=== PATIENT | female | born 1990 | race Caucasian/White ===

== ENCOUNTER 2018-03-27 15:30 | Emergency (ER) | payer OTHER ==
[2018-03-27] MEDS: HYDROCODONE/APAP (5/325) TAB PO (17:21)
== END 2018-03-27 17:57 | disposition home or self-care (01) ==
LOC: FTE 15:30
DX: S99.912A Unspecified injury of left ankle, initial encounter (principal); W10.8XXA Fall (on) (from) other stairs and steps, initial encounter; Y92.009 Unspecified place in unspecified non-institutional (private) residence as the place of occurrence of the external cause
CPT/HCPCS: 73590; 73610; 73630-LT; 99283-25

== ENCOUNTER 2018-10-10 10:17 | Day surgery (SDC) | payer OTHER ==
[2018-10-10] MEDS ORDERED: DEXAMETHASONE 4 MG/ML 1 ML INJ (11:26)
[2018-10-10] MEDS ORDERED: LIDOCAINE 2% (SDV) 5 ML INJ (12:40)
[2018-10-10] MEDS ORDERED: MIDAZOLAM 1 MG/ML 2 ML INJ (12:40)
[2018-10-10] MEDS ORDERED: FENTAnyl 50 MCG/ML VIAL (12:40)
[2018-10-10] MEDS ORDERED: PROPOFOL 20 ML ×3 (12:40→13:26)
[2018-10-10] MEDS: BUPIVACAINE 0.5% (SDV) 30 ML INJ (12:48)
[2018-10-10] MEDS: LIDOCAINE 2% (MDV) 20 ML INJ (12:48)
[2018-10-10] MEDS: POLYMYXIN/BACITRACIN 1L IRRIG (12:58)
[2018-10-10] MEDS ORDERED: CEFAZOLIN 1 GM INJ (13:00)
[2018-10-10] MEDS ORDERED: PROPOFOL 40 ML (13:00)
[2018-10-10] MEDS ORDERED: KETOROLAC 30 MG INJ (13:47)
[2018-10-10] MEDS ORDERED: FENTAnyl 50 MCG/ML VIAL IV (14:30)
[2018-10-10] MEDS ORDERED: MEPERIDINE 25 MG INJ IV (14:30)
[2018-10-10] MEDS ORDERED: OXYCODONE/ACETAMINOPHEN (5/325) TAB PO (14:30)
[2018-10-10] MEDS ORDERED: HYDROmorphONE 1 MG/5 ML IV SYRINGE IV ×3 (14:30)
[2018-10-10] MEDS ORDERED: ONDANSETRON 4 MG INJ IV (14:30)
== END 2018-10-10 16:30 | disposition home or self-care (01) ==
LOC: SDS 10:17
DX: M20.12 Hallux valgus (acquired), left foot (principal); M21.612 Bunion of left foot
CPT/HCPCS: 28299; 73620; 73630-LT; 84703